=== PATIENT | male | born 2000 | race Native Hawaiian/Other Pacific Islander ===

== ENCOUNTER 2024-05-14 22:22 | Emergency (ER) | payer SELFPAY ==
[2024-05-14 22:34] VITALS: BP 144/73; PULSE 110; RESP 18; TEMP 38.3; O2SAT 100; BMI 20.2
--- NOTE | 2024-05-14 22:56 | CTR_ITS ---
PROCEDURE INFORMATION: Exam: CT Maxillofacial With Contrast Exam date and time: 05/14/2024 11:15 PM Age: 24 years old Clinical indication: Mass, lump, or swelling; Other: Upper lip/nose/left eyebrow; Prior surgery; Surgery date: 6+ months; Surgery type: Dental; Swelling and erythema to left eyebrow, nose, and upper lip. ; Additional info: Nasal/upper lip edema/abscess TECHNIQUE: Imaging protocol: Computed tomography of the face with contrast. Radiation optimization: All CT scans at this facility use at least one of these dose optimization techniques: automated exposure control; mA and/or kV adjustment per patient size (includes targeted exams where dose is matched to clinical indication); or iterative reconstruction. Contrast material: OMNI 350; Contrast volume: 100 ml; Contrast route: INTRAVENOUS (IV); COMPARISON: No relevant prior studies available. RADIATION DOSE METRICS: Total DLP (mGy-cm): 623.98 FINDINGS: Paranasal sinuses: Mucosal thickening in the ethmoid and maxillary sinuses. The ostiomeatal units are obstructed on the left and patent on the right. Orbital cavities: Orbits are normal. Globes are unremarkable. Teeth: There are multiple dental cavities and periapical abscesses. Bones: No acute fracture. Soft tissues: There is a 9.8 mm focal fluid collection along the left supraorbital skin consistent with a probable sebaceous cyst. There is a 25.9 x 26.5 mm lobulated fluid collection with surrounding soft tissue thickening and inflammation extending from the upper lip into the soft tissues of the tip of the nose consistent with an abscess. CT/CT facial bones [facility] [id number] IMPRESSION: Abscess in the soft tissues of the upper lip and tip of the nose possibly of odontogenic origin. Probable sebaceous cyst the left supraorbital soft tissues.
--- NOTE | 2024-05-14 23:00 | ED_ITS ---
HPI - Skin/Abscess/Foreign Bdy 2 General: Chief complaint: Skin/Abscess/Foreign Body Stated complaint: swelling in face Time Seen by Provider: 05/14/24 22:46 Source: patient and family Mode of arrival: ambulatory Limitations: no limitations History of Present Illness: Patient is a 24-year-old male who presents to ED today along with significant other for facial swelling. He states several days ago he noticed a pimple-like lesion near his left eyebrow that he tried to pop. He has subsequently developed other pimple-like lesions to his face, one of which near his right nare. He states over the past 48 hours he has noticed significant swelling to his nose and upper lip. He arrives febrile and tachycardic. Reports history of staph infection. MD complaint: abscess/boil Onset (ago): day(s) Location: face Severity: severe Pain Consistency: constant Relieving factors: none Exacerbating factors: none Context: none Associated symptoms: Reports chills and fever(s); Deny nausea or vomiting Treatments prior to arrival: attempted to drain pus at home Related Data Allergies Allergy/AdvReac Type Severity Reaction Status Date / Time No Known Drug Allergies Allergy Unknown Verified 05/14/24 22:40 Review of Systems 2 Const: Reports: fever(s) and chills Eyes: Denies: change in vision or blurry vision ENMT: Reports: swelling of lips/tongue and sinus pain; Denies: throat pain or odynophagia Card: Denies: chest pain Resp: Denies: dyspnea GI: Denies: nausea or vomiting Musc: Denies: neck pain, back pain, extremity pain or joint swelling Skin/Breast: Denies: rash Neuro: Denies: headache(s) or dizziness Physical Exam 2 Const: COMMON NORMALS: average body habitus, patient oriented x3, no limitations, alert and well nourished GENERAL APPEARANCE: ill appearing O RIENTATION/CONSCIOUSNESS: Yes awake, Yes oriented to person, Yes oriented to place and Yes oriented to time HENMT: COMMON NORMALS: normocephalic and atraumatic HEAD & SCALP: normal to inspection, normocephalic and atraumatic FACE & SINUS: edema FACE & SINUS IMAGES: 1. significant pain/edema involving the central triangle of the face; small scabbed lesion to R inner nare 2. small indurated scabbed/picked sore/ abscess NOSE: Other nasal findings present (edema/tenderness involving nose) MOUTH: N ormal oral and palatal mucosa present and lip abnormal (upper lip swelling) T HROAT: posterior oropharynx normal and tonsils normal Eye: COMMON NORMALS: EOMs intact bilaterally and conjunctivae normal G ENERAL EYE: normal light reflex PERIORBITAL: periorbital findings abnormal (swelling) CONJUNCTIVA: Yes conjunctivae normal DIRECT OPHTHALMOSCOPY: Yes normal light reflex Neck/C-Spine: COMMON NORMALS: full ROM, no lymphadenopathy and no meningeal signs Resp: COMMON NORMALS: normal respiratory effort and clear to auscultation bilaterally AUSCULTATION: clear to auscultation bilaterally Cardio: COMMON NORMALS: regular rhythm RATE: tachycardic RHYTHM: regular rhythm Neuro: COMMON NORMALS: patient oriented x3 SENSORIUM/ORIENTATION: Yes alert, Yes oriented to person, Yes oriented to place and Yes oriented to time MENINGEAL SIGNS: Yes no meningeal signs Course 2 Consultations: Consultation #1: Dr. Waters ENT-agrees with need for transfer, recommend direct admit to hospitalist and he will consult on patient in the morning for drainage Vital Signs: Vital signs: Vital Signs Temperature 101 F H 05/14/24 22:34 Pulse Rate 106 H 05/15/24 00:16 Respiratory Rate 14 05/15/24 00:16 Blood Pressure 118/77 05/15/24 00:16 Pulse Oximetry 97 05/15/24 00:16 Oxygen Delivery Me thod Room Air 05/15/24 00:16 MDM - Skin/Abscess/Foreign Bdy Medicial Decision Making Patient is a 24-year-old male here with a 2.6 x 2.6 cm abscess involving the central triangle of his face. He arrives tachycardic and febrile with a temp of 101. He has a white count of 13.16. CRP is 74.2. His lactic is normal. Patient was started on IV Vancomycin. Dr. Bahena also evaluated patient. I spoke to [facility] as we do not have ENT coverage. [facility] Red [facility] agrees with need for transfer for drainage. Transfer line getting ak hospitalist Dr. Garcia for direct admit. Differential Diagnosis Likely abscess of skin or subcutaneous tissue Medical Records I reviewed the patient's medical records. Lab Data I reviewed the patient's lab results. 05/14/24 23:14 05/14/24 23:[address] 05/14/24 22:56 IMPRESSION: Abscess in the soft tissues of the upper lip and tip of the nose possibly of odontogenic origin. Probable sebaceous cyst the left supraorbital soft tissues. Laboratory Results WBC 13.16 10^3/uL (3.29-11.43) H 05/14/24 23:14 RBC 5.39 10^6/uL (3.85-5.65) 05/14/24 23:14 Hgb 14.40 g/dL (11.27-16.99) 05/14/24 23:14 Hct 45.5 % (37-53) 05/14/24 23:14 MCV 84.4 fl (82-101) 05/14/24 23:14 MCH 26.7 pg (27-33) L 05/14/24 23:14 MCHC 31.6 g/dL (30-55) 05/14/24 23:14 RDW 13.5 % (12.1-15.1) 05/14/24 23:14 Plt Count 289 10^3/cmm (157-399) 05/14/24 23:14 MPV 10.3 fL (7.4-10.4) 05/14/24 23:14 Neut % (Auto) 76.2 % 05/14/24 23:14 Lymph % (Auto) 12.5 % 05/14/24 23:14 [place] % (Auto) 9.7 % 05/14/24 23:14 Eos % (Auto) 0.8 % 05/14/24 23:14 Baso % (Auto) 0.5 % 05/14/24 23:14 Neut # (Auto) 10.04 10^3/uL (1.8-7.7) H 05/14/24 23:14 Lymph # (Auto) 1.6 10^3/uL (0.8-4.8) 05/14/24 23:14 [place] # (Auto) 1.3 10^3/uL (0.2-0.9) H 05/14/24 23:14 Eos # (Auto) 0.1 10^3/uL (0.0-0.8) 05/14/24 23:14 Baso # (Auto) 0.1 10^3/uL (0.0-0.1) 05/14/24 23:14 Nucleated RBC % (auto) 0 % 05/14/24 23:14 Nucleated RBCs # 0.0 /100WBC 05/14/24 23:14 Sodium 134 mmol/L (136-145) L 05/14/24 23:14 Potassium 4.2 mmol/L (3.5-5.1) 05/14/24 23:14 Chloride 93 mmol/L (98-107) L 05/14/24 23:14 Carbon Dioxide 30 mmol/L (22-29) H 05/14/24 23:14 Anion Gap 15.2 (5-19) 05/14/24 23:14 BUN 11 mg/dL (6-20) 05/14/24 23:14 Creatinine 1.1 mg/dL (0.7-1.2) 05/14/24 23:14 GFR Calculation 80.9 mL/min (90-130) L 05/14/24 23:14 Glucose 104 mg/dL (65-115) 05/14/24 23:14 Calculated Osmolality 278 mOsm/kg (285-295) L 05/14/24 23:14 Lactic Acid 0.9 mmol/L (0.5-2.2) 05/14/24 23:14 Calcium 9.6 mg/dL (8.5-10.5) 05/14/24 23:14 Total Bilirubin 0.2 mg/dL (0.15-1.2) 05/14/24 23:14 AST 12 U/L (0-40) 05/14/24 23:14 ALT 7 U/L (0-41) 05/14/24 23:14 Alkaline Phosphatase 81 U/L (40-130) 05/14/24 23:14 C-Reactive Protein 74.2 mg/L (0.0-4.9) H 05/14/24 23:14 Total Protein 8.2 g/dL (6.6-8.7) 05/14/24 23:14 Albumin 4.1 g/dL (3.5-5.2) 05/14/24 23:14 Globulin 4.1 g/dL (1.3-4.6) 05/14/24 23:14 Coronavirus (PCR) Negative (Negative) 05/14/24 23:26 Influenza A (PCR) Negative (Negative) 05/14/24 23:26 Influenza Type B (PCR) Negative (Negative) 05/14/24 23:26 RSV (PCR) Negative (Negative) 05/14/24 23:26 All radiology interpretation(s) finalized by discharge Discharge Plan Discharge Patient Disposition: Xfer Short-Term Hosp Clinical Impression: Abscess of face Condition: Stable Print Language: Dominican Coding Level of Care Code ED Natural Resource Technician for Irma Garcia
[2024-05-14] MEDS: iohexol 350 mg/mL 500 mL Btl (per mL) IV (23:24)
[2024-05-14 23:29] LABS: Basophils # 0.1 10^3/uL (0.0-0.1); Basophils % 0.5 %; Eosinophils # 0.1 10^3/uL (0.0-0.8); Eosinophils % 0.8 %; Hematocrit 45.5 % (37-53); Lymphocytes # 1.6 10^3/uL (0.8-4.8); Lymphocytes % 12.5 %; Mean Corpuscular HGB Conc 31.6 g/dL (30-55); Mean Corpuscular Hemoglobin 26.7 pg (27-33); Mean Corpuscular Volume 84.4 fl (82-101); Mean Platelet Volume 10.3 fL (7.4-10.4); Monocytes # 1.3 10^3/uL (0.2-0.9); Monocytes % 9.7 %; Neutrophils # 10.04 10^3/uL (1.8-7.7); Neutrophils % 76.2 %; Nucleated Red Blood Cells % 0 %; Platelet Count 289 10^3/cmm (157-399); Red Blood Count 5.39 10^6/uL (3.85-5.65); Red Cell Distribution Width 13.5 % (12.1-15.1); White Blood Count 13.16 10^3/uL (3.29-11.43)
[2024-05-14 23:51] LABS: Lactic Sepsis W/Reflex 0.9 mmol/L (0.5-2.2)
[2024-05-14 23:52] LABS: Alanine Aminotransferase 7 U/L (0-41); Albumin Level 4.1 g/dL (3.5-5.2); Alkaline Phosphatase 81 U/L (40-130); Anion Gap 15.2 (5-19); Aspartate Amino Transferase 12 U/L (0-40); Blood Urea Nitrogen 11 mg/dL (6-20); C Reactive Protein 74.2 mg/L (0.0-4.9); Calcium 9.6 mg/dL (8.5-10.5); Carbon Dioxide 30 mmol/L (22-29); Chloride 93 mmol/L (98-107); Globulin 4.1 g/dL (1.3-4.6); Glomerular Filtration Rate 80.9 mL/min (90-130); Glucose 104 mg/dL (65-115); Osmolality Calculated 278 mOsm/kg (285-295); Potassium 4.2 mmol/L (3.5-5.1); Sodium 134 mmol/L (136-145); Total Bilirubin 0.2 mg/dL (0.15-1.2); Total Protein 8.2 g/dL (6.6-8.7)
[2024-05-14] MEDS: vancomycin 1,250 MG/250 ML PIGGYBACK 166.67 MG IV (23:57)
[2024-05-14] MEDS: acetaminophen 500 mg Tablet 1000 MG PO (23:57)
[2024-05-15] VITALS (16 sets, daily range): BP systolic 91–118; BP diastolic 49–86; PULSE 81–117; RESP 14; TEMP 37.4; O2SAT 95–97
[2024-05-15 00:26] LABS: Influenza A NEGATIVE (Negative); Influenza B NEGATIVE (Negative); Respiratory Syncytial Virus Ce NEGATIVE (Negative); SARS-CoV-2 PCR NEGATIVE (Negative)
--- NOTE | 2024-05-15 01:54 | PC.NURSE ---
[facility] ems contacted about transfer to [facility] for ENT services and treatment. Bulb Tester Beck Phelan states that he will send a truck, but they are waiting on another ambulance to come back from a call.
--- NOTE | 2024-05-15 01:57 | PC.NURSE ---
Report called to Gordy Arellano RN at [facility]. Patient ot be transferred to unit 7D room 7255. All questions and concerns were addressed at time of report.
[2024-05-15] MEDS: dexamethasone 4 mg/mL INJ 8 MG IVP (02:17)
== END 2024-05-15 07:42 | disposition short-term general hospital (02) ==
PROVIDERS: Emergency Provider Physician Assistant
DX: L02.01 Cutaneous abscess of face (principal); Z11.52 Encounter for screening for COVID-19
CPT/HCPCS: 36415; 70487; 80053; 83605; 85025; 86140; 87040; 87637; 96365; 96366; 96375; 99285; J1100; J3370